=== PATIENT | female | born 1945 | race Caucasian/White ===

== ENCOUNTER 2017-10-31 12:02 | Outpatient (CLI) | payer MEDICARE ==
--- NOTE | 2017-10-31 14:25 | ULT ---
RIGHT LOWER EXTREMITY DOPPLER VENOUS ULTRASOUND: INDICATION: History of right leg pain with history of right lower extremity venous stripping. TECHNIQUE: [place] scale, color Doppler, and vascular duplex with spectral analysis was performed of the deep venou s structures of right extremity. The common femoral vein, superficial femoral vein, popliteal vein, p osterior tibial vein, proximal greater saphenous, and proximal profunda veins were assessed on the ri ght. FINDINGS: There is normal compression, flow, and augmentation seen within the deep venous structures of the rig ht lower extremity. There are mildly prominent varicosities seen within the soft tissues of the righ t foreleg. IMPRESSION: 1. No evidence of deep vein thrombosis within the right lower extremity. 2. Mildly prominent varicosities within the subcutaneous tissues of the right lower extremity. POS: [facility]
== END 2017-10-31 12:03 | disposition home or self-care (01) ==
LOC: RAD 12:02
PROVIDERS: ATTEND Family Medicine
DX: I80.9 Phlebitis and thrombophlebitis of unspecified site (principal); I83.91 Asymptomatic varicose veins of right lower extremity

== ENCOUNTER 2018-09-14 10:15 | Outpatient (CLI) | payer MEDICARE ==
--- NOTE | 2018-09-14 12:50 | CT ---
CT ABDOMEN WITHOUT CONTRAST: CT PELVIS WITHOUT CONTRAST: HISTORY: The patient has a history of hydronephrosis with ureteropelvic junction obstruction. Recent incontin ence. COMPARISON: 11/30/2012 TECHNIQUE: Noncontrast abdomen and pelvis CT is performed in the axial plane. Reformatted images are submitted for interpretation. FINDINGS: ABDOMEN: Calcified hilar and mediastinal lymph nodes are noted. There is a 3 mm nodule in the right lower lobe. Limited evaluation of the solid organs due to lack of IV contrast. Redemonstration of multiple hypod ensities in the hepatic parenchyma, which are similar to the previous examination. Given long-term s tability, hepatic cysts are favored. Grossly, no solid organ abnormality. There appear to be enlarged gastrohepatic lymph nodes, incompletely evaluated. No retrocrural or per iportal lymphadenopathy. No mesenteric mass, lymphadenopathy, free air, or free fluid. Limited evaluation of the alimentary canal due to lack of oral contrast. Gastric mucosa, duodenum, a nd small bowel loops are essentially normal. Normal caliber appendix. Scattered fecal material in a nondistended, nondilated colon. Bilaterally, no hydronephrosis, nephrolithiasis, or perinephric fat stranding. Bilateral ureters hav e a normal caliber. No hydroureter, periureteral fat stranding, or ureterolithiasis. Note is made o f a small umbilical hernia containing mesenteric fat. PELVIS: The uterus and adnexal structures are grossly unremarkable. No pelvic mass, lymphadenopathy , free air, or free fluid. No calcifications within the urinary bladder. No lytic or blastic lesions in the osseous structures. Remote compression at T12. IMPRESSION: 1. No evidence of nephrolithiasis or obstructive uropathy. 2. Redemonstration of multiple hepatic cysts. 3. Nonspecific mildly enlarged gastrohepatic lymph nodes. These findings are similar to the CT from 2013. POS: [facility]
== END 2018-09-14 10:16 | disposition home or self-care (01) ==
LOC: BICCT 10:15
PROVIDERS: ATTEND Urology
DX: N13.0 Hydronephrosis with ureteropelvic junction obstruction (principal); K76.89 Other specified diseases of liver; R59.0 Localized enlarged lymph nodes
CPT/HCPCS: 74150

== ENCOUNTER 2018-11-14 13:40 | Outpatient (CLI) | payer MEDICARE | END 2018-11-14 13:41 | disposition home or self-care (01) | LOC: BICMAMMO 13:40 | PROVIDERS: ATTEND Family Medicine | DX: Z12.31 Encounter for screening mammogram for malignant neoplasm of breast (principal) | CPT/HCPCS: 77063; 77067 ==

== ENCOUNTER 2020-12-24 08:41 | Outpatient (CLI) | payer MEDICARE | END 2020-12-24 08:42 | disposition home or self-care (01) | LOC: NM 08:41 | PROVIDERS: ATTEND Psychiatry & Neurology Neurology | DX: G20 Parkinson's disease (principal); I73.9 Peripheral vascular disease, unspecified; M51.27 Other intervertebral disc displacement, lumbosacral region; M43.17 Spondylolisthesis, lumbosacral region; M48.07 Spinal stenosis, lumbosacral region; M48.061 Spinal stenosis, lumbar region without neurogenic claudication | CPT/HCPCS: 72148; 78803; A9584 ==

== ENCOUNTER 2021-02-11 10:17 | Outpatient (CLI) | payer MEDICARE | END 2021-02-11 10:18 | disposition home or self-care (01) | LOC: BICRAD 10:17 | PROVIDERS: ATTEND Family Medicine | DX: M16.12 Unilateral primary osteoarthritis, left hip (principal) ==

== ENCOUNTER 2021-07-21 09:40 | Outpatient (CLI) | payer MEDICARE | END 2021-07-21 09:41 | disposition home or self-care (01) | LOC: BICMAMMO 09:40 | PROVIDERS: ATTEND Physician Assistant | DX: M81.0 Age-related osteoporosis without current pathological fracture (principal); M85.851 Other specified disorders of bone density and structure, right thigh; M85.852 Other specified disorders of bone density and structure, left thigh | CPT/HCPCS: 77080 ==